=== PATIENT | female | born 1965 | race Caucasian/White ===

== ENCOUNTER 2018-04-13 11:32 | Emergency (ER) | payer BC, OTHER ==
[~2018-04-13] VITALS: Ht 160 cm; Wt 45.1 kg
[2018-04-13 11:39] VITALS: BP 113/77
[2018-04-13] MEDS ORDERED: ISOS30TA21 PO (12:14)
[2018-04-13] MEDS ORDERED: AMLO10TA2 PO (12:14)
[2018-04-13] MEDS ORDERED: ATOR40TA78 PO (12:14)
[2018-04-13] MEDS ORDERED: METO50TA82 PO (12:14)
[2018-04-13] MEDS ORDERED: LEVO100T5 PO (12:14)
== END 2018-04-13 13:35 | disposition home or self-care (01) ==
LOC: ED 13:30
DX: S16.1XXA Strain of muscle, fascia and tendon at neck level, initial encounter (principal); V69.49XA Driver of heavy transport vehicle injured in collision with other motor vehicles in traffic accident, initial encounter; Y93.89 Activity, other specified; Y99.8 Other external cause status; Y92.89 Other specified places as the place of occurrence of the external cause
CPT/HCPCS: 72020; 72050; 99284